=== PATIENT | female | born 1955 | race Caucasian/White ===

== ENCOUNTER → 2016-05-04 | Outpatient (CLI) | payer OTHER ==
[~2016-05-04] MED LIST: ASPI81TA57 PO; CALCTAB5 PO; CINN1CAP2 PO; DLD2 PO; ESTR2TAB PO; MULT-506 PO; NCY50 PO; NRN100 PO; ZCR40 PO
[2016-05-04 18:06] LABS: URINE APPEARANCE CLEAR (CLEAR); URINE BILIRUBIN NEG (NEG); URINE COLOR YELLOW; URINE EPITHELIAL CELL AUTO 0-5 /lpf (0-5); URINE NITRITE NEG (NEG); URINE SPECIFIC GRAVITY 1.009 (1.000-1.030); UROBILINOGEN NEG (NEG); ZZUR CULT IF INDIC CLEAN CATCH NO
[2016-05-04 18:21] LABS: MANUAL MICROSCOPIC REQUIRED? NO; REVIEW REQ? NO
== END | disposition home or self-care (01) ==
LOC: C.LABSPEC 12:51
PROVIDERS: ATTEND Obstetrics & Gynecology
DX: R39.15 Urgency of urination (principal)

== ENCOUNTER → 2016-05-04 | Outpatient (CLI) | payer OTHER | END | disposition home or self-care (01) | LOC: C.PAPS 10:04 | PROVIDERS: ATTEND Obstetrics & Gynecology | DX: Z12.4 Encounter for screening for malignant neoplasm of cervix (principal) ==

== ENCOUNTER → 2017-05-21 | Outpatient (CLI) | payer BC ==
[~2017-05-21] MED LIST changes: -DLD2 PO; +HYDR2TAB3 PO
--- NOTE | 2017-05-24 07:39 | MAMMOGRAPHY REPORT ---
BILATERAL DIGITAL SCREENING MAMMOGRAM TOMOSYNTHESIS WITH CAD: 05/21/2017 CLINICAL HISTORY: Routine screening. Patient has no complaints. TECHNIQUE: Breast tomosynthesis in addition to standard 2D mammography was performed. Current study was also evaluated with a Computer Aided Detection (CAD) system. COMPARISON: Comparison is made to exams dated: 08/01/2015 mammogram, 07/13/2014 mammogram, 07/07/2013 m ammogram, 07/01/2012 mammogram, 06/26/2010 mammogram, and 06/25/2009 mammogram - [facility] nter. BREAST COMPOSITION: There are scattered areas of fibroglandular density in both breasts. FINDINGS: No suspicious masses, calcifications, or areas of architectural distortion are noted in ei ther breast. There has been no significant interval change compared to prior exams. IMPRESSION: ACR BI-RADS CATEGORY 1: NEGATIVE There is no mammographic evidence of malignancy. A 1 year screening mammogram is recommended. The pa tient will receive written notification of the results. Approximately 10% of breast cancers are not detected with mammography. A negative mammographic report should not delay biopsy if a clinically suggestive mass is present. Concha Benitez M.D. /:05/21/2017 12:33:58 Software Computer Specialist: Marianne Luther, [facility] letter sent: Normal /2 BI-RADS Code: ACR BI-RADS Category 1: Negative
== END | disposition home or self-care (01) ==
LOC: C.MAMM 09:36
PROVIDERS: ATTEND Obstetrics & Gynecology
DX: Z12.31 Encounter for screening mammogram for malignant neoplasm of breast (principal)

== ENCOUNTER → 2017-07-28 | Outpatient (CLI) | payer BC ==
--- NOTE | 2017-07-28 13:42 | DIAGNOSTIC IMAGING REPORT ---
CHEST 2 VIEWS ROUTINE CLINICAL HISTORY: 62 years-old Female presenting with J18.9 Community acquired pneumonia Still have symptoms after treatment. TECHNIQUE: PA and lateral views of the chest were obtained. COMPARISON: 03/28/2014. FINDINGS: Atherosclerosis of the aortic arch. Cardiac silhouette normal in size. Minimal left basilar opacity and small left pleural effusion evident only on lateral view. No focal opacity. No pneumothorax. Dextrocurvature of the thoracic spine. Partially visualized lumbar fusion hardware. Upper abdomen normal. IMPRESSION: 1. Small left pleural effusion with associated minimal left basilar opacity, possibly atelectasis. Electronically signed by: Miguel Soto M.D. 07/28/2017 1:40 PM Dictated Date/Time: 07/28/2017 1:38 PM
== END | disposition home or self-care (01) ==
LOC: C.LAB1850 13:15
PROVIDERS: ATTEND Internal Medicine
DX: J18.9 Pneumonia, unspecified organism (principal)

== ENCOUNTER 2017-07-30 19:32 | Emergency (ER) | payer BC ==
[~2017-07-30] VITALS: Ht 149.9 cm; Wt 81.5 kg
[2017-07-30 19:39] VITALS: TEMP 36.7; Ht 149.9 cm; Wt 81.5 kg
--- NOTE | 2017-07-30 21:02 | EMERGENCY ROOM VISIT NOTE ---
History Report prepared by Valentina: Marley Churchill Under the Supervision of: Dr. Valente Berry M.D. 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 She states that she has shakiness and sweating. She denies having a fever. She states her episodes last about 5 minutes and then they subside. 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 She states she does not know anyone else who is sick. She denies smoking, having any weird exposure to anything, or receiving a flu shot. 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 A total of 10 systems reviewed and were otherwise negative. Past Medical & Surgical Medical Problems: (1) Hyperlipidemia Nec/Nos Surgical Problems: (1) S/P lumbar fusion Old medical records were reviewed. Nurse's notes were reviewed and I agree with. Family History Diabetes mellitus Heart disease Social History Smoking Status: Never Smoker Alcohol Use: none Marital Status: Housing Status: lives with family Current/Historical Medications Scheduled Aspirin (Aspirin Ec Lo-Dose), 81 MG PO DAILY Calcium (Caltrate), 1,200 MG PO DAILY Cinnamon (Cinnamon), 2,000 MG PO DAILY Estradiol (Estradiol), 2 MG PO DAILY Gabapentin (Gabapentin), 100 MG PO TID Multivitamin (Multivitamin), 1 TAB PO DAILY Simvastatin (Simvastatin), 40 MG PO DAILY Scheduled PRN Hydromorphone HCl (Hydromorphone HCl), 2 MG PO Q6 PRN for Pain Tapentadol HCl (Nucynta), 50 MG PO Q4H PRN for Pain Allergies Coded Allergies: Acetaminophen (Unverified Allergy, Unknown, RASH, SEVERE ITCHINESS, 05/24/14 ) Codeine (Unverified Allergy, Unknown, RASH, SEVERE ITCHINESS, 05/24/14) Morphine (Verified Allergy, Unknown, skin redness, itching, 05/24/14) Oxycodone (Verified Allergy, Unknown, URITCARIA, 05/24/14) Physical Exam Vital Signs Date Time Temp Pulse Resp B/P (MAP) Pulse Ox O2 Delivery O2 Flow Rate FiO2 07/30/17 23:33 61 20 118/73 95 Room Air 07/30/17 22:46 65 20 125/71 94 Room Air 07/30/17 21:38 65 07/30/17 19:39 36.7 73 20 127/70 95 Room Air Physical Exam General: Mildly-ill appearing middle aged female in no acute distress. Has a frequent hacking cough but is in no respiratory distress HEENT: Normal cephalic atraumatic. Pupils are equal round and reactive to light. Extraocular movements are intact. Oropharynx is pink with moist mucous membranes. No swelling of the mouth lips or tongue. Neck: Supple with a midline trachea. No meningeal signs or stiffness, no JVD or bruits. No Stridor. Chest: Clear to auscultation bilaterally. No wheezes or rhonchi. No increased work of breathing. Heart: regular rate and rhythm. Abdomen: Soft nontender, nondistended without rebound guarding or rigidity. Extremities: No cyanosis clubbing or edema. No calf tenderness or assymetry Spine/Back. Non tender to palpation. No CVA tenderness Skin: Good turgor without rashes. Neurologic exam: Cranial nerves two through 12 are intact. Motor and sensation are intact and symmetrical throughout. Medical Decision & Procedures ER Provider Diagnostic Interpretation: Radiology results as stated below per my review and radiologist interpretation: CHEST ONE VIEW PORTABLE CLINICAL HISTORY: 62 years-old Female presenting with CHEST PAIN. TECHNIQUE: Portable upright AP view of the chest was obtained. COMPARISON: 07/28/2017. FINDINGS: Cardiomediastinal silhouette normal. No focal opacity. No large effusion or pneumothorax. Post procedure changes of kyphoplasty. Superior knee from prior. Mild scoliotic curvature of the thoracic spine. Upper abdomen normal. IMPRESSION: 1. No acute cardiopulmonary disease. Electronically signed by: Miguel Soto M.D. 07/30/2017 9:32 PM Dictated Date/Time: 07/30/2017 9:31 PM Laboratory Results 07/30/17 20:50 Red Blood Count 4.18, Mean Corpuscular Volume 95.9, Mean Corpuscular Hemoglobin 34.2, Mean Corpuscular Hemoglobin Concent 35.7, Mean Platelet Volume 10.2, Neutrophils (%) (Auto) 64.1, Lymphocytes (%) (Auto) 25.2, Monocytes (%) (Auto) 7.5, Eosinophils (%) (Auto) 2.7, Basophils (%) (Auto) 0.3, Neutrophils # (Auto) 4.27, Lymphocytes # (Auto) 1.68, Monocytes # (Auto) 0.50, Eosinophils # (Auto) 0.18, Basophils # (Auto) 0.02 07/30/17 20:50 Test 07/30/17 20:50 07/30/17 21:17 07/30/17 21:47 White Blood Count 6.66 K/uL (4.8-10.8) Red Blood Count 4.18 M/uL (4.2-5.4) Hemoglobin 14.3 g/dL (12.0-16.0) Hematocrit 40.1 % (37-47) Mean Corpuscular Volume 95.9 fL (80-100) Mean Corpuscular Hemoglobin 34.2 pg (25-34) Mean Corpuscular Hemoglobin Concent 35.7 g/dl (32-36) Platelet Count 291 K/uL (130-400) Mean Platelet Volume 10.2 fL (7.4-10.4) Neutrophils (%) (Auto) 64.1 % Lymphocytes (%) (Auto) 25.2 % Monocytes (%) (Auto) 7.5 % Eosinophils (%) (Auto) 2.7 % Basophils (%) (Auto) 0.3 % Neutrophils # (Auto) 4.27 K/uL (1.4-6.5) Lymphocytes # (Auto) 1.68 K/uL (1.2-3.4) Monocytes # (Auto) 0.50 K/uL (0.11-0.59) Eosinophils # (Auto) 0.18 K/uL (0-0.5) Basophils # (Auto) 0.02 K/uL (0-0.2) RDW Standard Deviation 44.7 fL (36.4-46.3) RDW Coefficient of Variation 13.2 % (11.5-14.5) Immature Granulocyte % (Auto) 0.2 % Immature Granulocyte # (Auto) 0.01 K/uL (0.00-0.02) Anion Gap 7.0 mmol/L (3-11) Est Creatinine Clear Calc Drug Dose 45.5 ml/min Estimated GFR () 56.5 Estimated GFR (Non- 48.7 BUN/Creatinine Ratio 14.2 (10-20) Calcium Level 9.5 mg/dl (8.5-10.1) Total Bilirubin 0.3 mg/dl (0.2-1) Direct Bilirubin mg/dl (0-0.2) Aspartate Amino Transf (AST/SGOT) 28 U/L (15-37) Alanine Aminotransferase (ALT/SGPT) 34 U/L (12-78) Alkaline Phosphatase 78 U/L (45-117) Total Protein 7.9 gm/dl (6.4-8.2) Albumin 4.3 gm/dl (3.4-5.0) Lipase 178 U/L (73-393) Chemistry Specimen Hemolysis Influenza Type A Antigen Neg for Influ A (NEG) Influenza Type B Antigen Neg for Influ B (NEG) Bedside D-Dimer 284 ng/mlFEU (0-450) Medications Administered Medications (Trade) Dose Ordered Sig/Cheko Route Start Time Stop Time Status Last Admin Dose Admin Lorazepam (Ativan 1MG Home Pack) 1 homepack UD ONCE PO 07/30/17 23:15 07/30/17 23:16 DC 07/30/17 23:33 1 HOMEPACK Albuterol (Ventolin Hfa Inhaler) 2 puffs NOW ONCE INH 07/30/17 23:15 07/30/17 23:16 DC 07/30/17 23:33 2 PUFFS ECG Per My Interpretation Indication: SOB/dyspnea Rate (beats per minute): 72 Rhythm: normal sinus Findings: no acute ischemic change, no ectopy, other (low voltage, poor R wave progression) Comparison ECG Date: March 28, 2014 Change: no significant change ED Course 2048: Past medical records reviewed. The patient was evaluated in room A3, and a complete history and physical examination were performed. Medical Decision Differential diagnosis: Etiologies such as bronchitis, pneumonia, influenza, pertussis, PE, cardiac disease, electrolyte or metabolic abnormality, as well as others were entertained. This patient comes in as described above she has had a cough for several weeks now and has been on antibiotics. She tells me she has pneumonia and is just not getting better. she is on Levaquin starting 2 days ago. She has chest pain mostly with coughing. On my exam, she has a deep hacking intermittent cough. She has stable vital signs and is not hypoxemic and she is afebrile. EKG shows no acute ischemic changes or ectopy. Chest x-ray is unremarkable. She has no acute electrolyte or metabolic abnormalities. Multiple blood testing was obtained. She has no white count or fever to suggest infection. She has no acute electrolyte or metabolic abnormality. Her cardiac biomarkers are not elevated. Symptoms will be very atypical for cardiac disease. Influenza swab was negative. I did a pertussis swab but that is pending. Given that, I did put in respiratory isolation. I did a chest CT there is no evidence of PE. There is no definite infiltrate but more likely atelectasis in the bases I do think she should continue the antibiotic. I did discuss with her pharmacist Levaquin does have coverage for pertussis which would still be in the differential. She cannot tolerate codeine type products and is going to try an inhaler to help with the cough. She is having trouble sleeping at night but also can take Benadryl. She says she has had Ativan before I did give her a home pack of a few Ativan that she can take 0.5 mg just to get some sleep at night. She was warned e this can make her drowsy do not take for drinking, driving, working. She should continue the Levaquin and drink plenty of fluids and follow-up with her doctor Wednesday for recheck return to the ER over the weekend if: worsening of symptoms, shortness of breath, fever or chills, any new problems or concerns. She is happy the plan and discharged to home Medication Reconcilliation Current Medication List: was personally reviewed by me Blood Pressure Screening Patient's blood pressure: Normal blood pressure Blood pressure disposition: Did not require urgent referral Impression Primary Impression: Cough Additional Impression: Chest pain Scribe Attestation The scribe's documentation has been prepared under my direction and personally reviewed by me in its entirety. I confirm that the note above accurately reflects all work, treatment, procedures, and medical decision making performed by me. Departure Information Referrals No Doctor, Assigned (PCP) Patient Instructions My [facility] Problem Qualifiers
[2017-07-30 21:10] LABS: BASO % 0.3 %; BASO ABS # 0.02 K/uL (0-0.2); EOS % 2.7 %; EOS ABS # 0.18 K/uL (0-0.5); HEMATOCRIT 40.1 % (37-47); HEMOGLOBIN 14.3 g/dL (12.0-16.0); IG# 0.01 K/uL (0.00-0.02); LYMPH % 25.2 %; LYMPH ABS # 1.68 K/uL (1.2-3.4); MEAN CELL VOLUME 95.9 fL (80-100); MEAN CORPUSCULAR HEMOGLOBIN 34.2 pg (25-34); MEAN CORPUSCULAR HGB CONC 35.7 g/dl (32-36); MEAN PLATELET VOLUME 10.2 fL (7.4-10.4); MONO % 7.5 %; NEUT % 64.1 %; NEUT ABS # 4.27 K/uL (1.4-6.5); PLATELET COUNT 291 K/uL (130-400); RED CELL DISTRIBUTION WIDTH CV 13.2 % (11.5-14.5); RED CELL DISTRIBUTION WIDTH SD 44.7 fL (36.4-46.3); WHITE BLOOD COUNT 6.66 K/uL (4.8-10.8)
--- NOTE | 2017-07-30 21:33 | DIAGNOSTIC IMAGING REPORT ---
CHEST ONE VIEW PORTABLE CLINICAL HISTORY: 62 years-old Female presenting with CHEST PAIN. TECHNIQUE: Portable upright AP view of the chest was obtained. COMPARISON: 07/28/2017. FINDINGS: Cardiomediastinal silhouette normal. No focal opacity. No large effusion or pneumothorax. Post procedure changes of kyphoplasty. Superior knee from prior. Mild scoliotic curvature of the thoracic spine. Upper abdomen normal. IMPRESSION: 1. No acute cardiopulmonary disease. Electronically signed by: Miguel Soto M.D. 07/30/2017 9:32 PM Dictated Date/Time: 07/30/2017 9:31 PM
[2017-07-30 21:35] LABS: ALBUMIN 4.3 gm/dl (3.4-5.0); CALCIUM 9.5 mg/dl (8.5-10.1); CREATININE 1.2 mg/dl (0.60-1.20); POTASSIUM 3.2 mmol/L (3.5-5.1); TOTAL PROTEIN 7.9 gm/dl (6.4-8.2)
[2017-07-30 21:57] LABS: INFLUENZA B ANTIGEN Neg for Influ B (NEG)
[2017-07-30] MEDS ORDERED: OPTIRAY 320 IV PRN (22:30)
--- NOTE | 2017-07-30 22:39 | DIAGNOSTIC IMAGING REPORT ---
(CHEST FOR PE) ANGIO WITH CLINICAL HISTORY: 62 years-old Female presenting with chest pain, clinical concern for pulmonary embolus or pneumonia. TECHNIQUE: Multidetector CT angiography of the chest was performed after administration of intravenous contrast. 3-D volumetric and/or maximum intensity projection (MIP) images were subsequently reconstructed for review. IV contrast: 94 mL of Optiray 320. A dose lowering technique was used consistent with the principles of ALARA (as low as reasonably achievable). COMPARISON: Chest x-ray performed earlier the same day. CT DOSE (mGy.cm): The estimated cumulative dose is 499.77 mGy.cm. 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 Pulmonary vasculature: The study is adequate for assessment of the pulmonary vascular tree. No filling defect within the pulmonary arteries to suggest embolus. Main pulmonary artery is not enlarged. No flattening of the interventricular septum. No intracardiac filling defect. No reflux of contrast into the hepatic veins. Remaining chest: On soft tissue windows, normal thyroid and thoracic inlet. No axillary, supraclavicular, hilar, or mediastinal lymphadenopathy. Normal aorta. Normal heart size. No pericardial or pleural effusion. Upper abdomen normal. On lung windows, minimal groundglass and reticular opacities in a peripheral distribution that follows the dependent posterior basal segment of the right lower lobe. Minimal similar changes at the left lung base. No other focal nodule or infiltrate. Airways patent. On bone windows, normal osseous structures. IMPRESSION: 1. No evidence of pulmonary embolus. 2. Minimal bibasilar opacities suspected to be atelectasis greater on the right. No convincing evidence of acute intrathoracic pathology. Electronically signed by: Miguel Soto M.D. 07/30/2017 10:37 PM Dictated Date/Time: 07/30/2017 10:34 PM
[2017-07-30] MEDS ORDERED: ATIVAN 1MG HOMEPACK PO ONE (23:15)
[2017-07-30] MEDS ORDERED: ALBUTEROL HFA 8 GM INHALER INH ONE (23:15)
[2017-07-30 23:33] VITALS: BP 118/73; PULSE 61; O2SAT 95
== END 2017-07-30 23:52 | disposition home or self-care (01) ==
LOC: C.EDB 19:33 → C.EDA 23:52
DX: R05 Cough (principal); R07.9 Chest pain, unspecified; E78.5 Hyperlipidemia, unspecified; Z79.82 Long term (current) use of aspirin; Z79.899 Other long term (current) drug therapy; Z88.5 Allergy status to narcotic agent

== ENCOUNTER → 2017-12-01 | Outpatient (CLI) | payer BC ==
[2017-12-01 10:02] LABS: HEMATOCRIT 36.9 % (37-47); HEMOGLOBIN 12.6 g/dL (12.0-16.0); MEAN CELL VOLUME 92.3 fL (80-100); MEAN CORPUSCULAR HEMOGLOBIN 31.5 pg (25-34); MEAN CORPUSCULAR HGB CONC 34.1 g/dl (32-36); MEAN PLATELET VOLUME 10.4 fL (7.4-10.4); PLATELET COUNT 247 K/uL (130-400); RED CELL DISTRIBUTION WIDTH CV 12.2 % (11.5-14.5); RED CELL DISTRIBUTION WIDTH SD 41.3 fL (36.4-46.3); WHITE BLOOD COUNT 2.93 K/uL (4.8-10.8)
[2017-12-01 10:26] LABS: ALKALINE PHOSPHATASE 68 U/L (45-117); ALT/SGPT 34 U/L (12-78); AST/SGOT 27 U/L (15-37); BLOOD UREA NITROGEN 17 mg/dl (7-18); CALCIUM 9.1 mg/dl (8.5-10.1); CARBON DIOXIDE 31 mmol/L (21-32); CHOLESTEROL 184 mg/dl (0-200); CREATININE 0.85 mg/dl (0.60-1.20); GLUCOSE 95 mg/dl (70-99); LDL CHOLESTEROL CALCULATED 98 mg/dl; POTASSIUM 3.6 mmol/L (3.5-5.1); SODIUM 138 mmol/L (136-145); TOTAL PROTEIN 7.2 gm/dl (6.4-8.2)
== END | disposition home or self-care (01) ==
LOC: C.LAB1850 07:53
PROVIDERS: ATTEND Internal Medicine
DX: Z00.00 Encounter for general adult medical examination without abnormal findings (principal); E78.5 Hyperlipidemia, unspecified; I10 Essential (primary) hypertension

== ENCOUNTER 2018-10-19 13:47 | Observation (INO) ==
[2018-10-19] MEDS ORDERED: OPTIRAY 320 125ml IV PRN (14:18)
--- NOTE | 2018-10-19 14:18 | CT Scan Report ---
CT head/brain wo con CLINICAL HISTORY: 63 years-old Female with Stroke evaluation . Acute weakness with strokelike sympto ms TECHNIQUE: Multiple axial CT images of the head were obtained without contrast. A dose lowering tech nique was utilized adhering to the principles of ALARA. CT DOSE: 537.48 mGy.cm COMPARISON: None. FINDINGS: No acute intracranial hemorrhage, midline shift, intracranial mass, hydrocephalus, territorial ischem ia or abnormal extra-axial collection. Mild degree of ill-defined white matter hypodensities are sugg estive of probable chronic microvascular ischemic disease. The calvarium is intact. Mild mucosal thickening of the ethmoid air cells. Soft tissues and orbits a re unremarkable. IMPRESSION: No acute intracranial abnormality. The above report was generated using voice recognition software. It may contain grammatical, syntax o r spelling errors. Electronically signed by: Obie Hylton M.D. 10/19/2018 2:17 PM
[2018-10-19 14:19] LABS: Basophils # (auto) 0.02 K/uL (0-0.2); Basophils % (auto) 0.5 %; Eosinophils # (auto) 0.16 K/uL (0-0.5); Eosinophils % (auto) 4.1 %; Hematocrit (blood only) 38.4 % (37-47); Hemoglobin 13.4 g/dL (12.0-16.0); Lymphocytes # (auto) 1.33 K/uL (1.2-3.4); Lymphocytes % (auto) 33.8 %; Mean Corpuscular Hgb Conc 34.9 g/dL (32-36); Mean Corpuscular Volume 93.2 fL (80-100); Mean Platelet Volume 10.5 fL (7.4-10.4); Monocytes # (auto) 0.31 K/uL (0.11-0.59); Monocytes % (auto) 7.9 %; Neutrophils # (auto) 2.12 K/uL (1.4-6.5); Neutrophils % (auto) 53.7 %; Platelet Count 223 K/uL (130-400); RDW Coefficient of Variation 12.3 % (11.5-14.5); Red Blood Count 4.12 M/uL (4.2-5.4); White Blood Count 3.94 K/uL (4.8-10.8)
[2018-10-19 14:24] LABS: iSTAT Creatinine 1.1 mg/dl (0.6-1.3); iSTAT Hemoglobin 13.3 g/dl (12.0-16.0); iSTAT Ionized Calcium 1.17 mmol/l (1.12-1.32); iSTAT Potassium 3.4 mEq/L (3.3-5.0)
--- NOTE | 2018-10-19 14:31 | CT Scan Report ---
CT angio neck with con HISTORY: Mental status change stroke symptoms TECHNIQUE: Multiaxial CT angiography of the neck was performed IV contrast: 100 cc All measurements were calculated based on NASCET criteria. Maximum intensity projection images were also obtained. A dose lowering technique was utilized adhering to the principles of ALARA. COMPARISON STUDY: None. FINDINGS: The aortic arch and proximal great vessels are widely patent. There is no significant sten osis, occlusion, or dissection identified within the bilateral common carotid, internal carotid, or v ertebral arteries. IMPRESSION: No significant stenosis, occlusion, or dissection identified within the carotid or vertebral arteries . The above report was generated using voice recognition software. It may contain grammatical, syntax or spelling errors. Electronically signed by: Louis Howell M.D. 10/19/2018 2:30 PM
--- NOTE | 2018-10-19 14:34 | CT Scan Report ---
HEAD CTA HISTORY: Weakness. stroke symptoms TECHNIQUE: Multiaxial CT images of the head were performed both before and after the intravenous admi nistration of contrast to evaluate the major cerebral vessels. Maximum intensity projection images we re also obtained. A dose lowering technique was utilized adhering to the principles of ALARA. COMPARISON: Head CT 10/19/2018. FINDINGS: There is no mass, hematoma, midline shift, or acute infarct. Visualized intracranial security intern al carotid arteries, distal vertebral arteries, and basilar artery are widely patent. There is no sig nificant stenosis, occlusion, or aneurysm seen within the bilateral ACAs, MCAs, or sample mounter. IMPRESSION: No significant stenosis, occlusion, or aneurysm within the [place] band of [place]. Electronically signed by: Alex Rico M.D. 10/19/2018 2:33 PM
[2018-10-19 14:35] LABS: Partial Thromboplastin Time 26.2 Seconds (21.0-31.0); Prothrombin Time 9.9 Seconds (9.0-12.0)
[2018-10-19 14:48] LABS: Alanine Aminotransferase 41 U/L (12-78); Albumin Globulin Ratio 1.2 (0.9-2); Albumin Level 4.1 gm/dl (3.4-5.0); Alkaline Phosphatase 76 U/L (45-117); Aspartate Aminotransferase 37 U/L (15-37); BUN Creatinine Ratio 21.6 (10-20); Bilirubin,Total 0.3 mg/dl (0.2-1); Blood Urea Nitrogen 23 mg/dl (7-18); Calcium 9.3 mg/dl (8.5-10.1); Carbon Dioxide 29 mmol/L (21-32); Chloride 102 mmol/L (98-107); Creatinine Clr Calc Pharmacy 53.3 ml/min; Est GFR (African American) 65.9; Est GFR (Non-African American) 56.9; Globulin 3.6 gm/dl (2.5-4.0); Glucose 147 mg/dl (70-99); Magnesium 2.4 mg/dl (1.8-2.4); Potassium 3.5 mmol/L (3.5-5.1); Sodium 140 mmol/L (136-145); Total Protein 7.7 gm/dl (6.4-8.2); Troponin I < 0.015 ng/ml (0-0.045)
--- NOTE | 2018-10-19 15:21 | History & Physical Report ---
Date of Service October 19, 2018 Assessment & Plan (1) Precordial chest pain: - Admit to tele for observation for r/o - Trend cardiac biomarkers, initial set was negative, next set to be drawn at 9 PM - EKG reviewed as above - Check 2 D echo -Cardiology consulted- Dr. Whittaker - If negative enzymes can consider a stress test tomorrow morning. - PT/OT consulted (2) Difficulty with speech: (3) Stroke-like symptoms: (4) Spinal stenosis at L4-L5 level: (5) Peripheral edema: (6) Lumbar stenosis with neurogenic claudication: (7) DVT prophylaxis: History of Present Illness Primary Care Provider: Miguel Rust MD This is a 63-year-old female with past medical history of history of chest pain, peripheral edema, lumbar stenosis with neurogenic claudication, chronic lumbar pain, who presented with precordial chest pain. Allergies Allergy/AdvReac Type Severity Reaction Status Date / Time acetaminophen Allergy Unknown RASH, Unverified 10/19/18 14:50 SEVERE ITCHINESS codeine Allergy Unknown RASH, Unverified 10/19/18 14:50 SEVERE ITCHINESS morphine Allergy Unknown skin Verified 10/19/18 14:50 redness, itching oxycodone Allergy Unknown URITCARIA Verified 10/19/18 14:50 Home Medications Home Medications Medication Instructions Recorded Confirmed Type Multi-Day Plus Minerals 1 tab PO QPM 12/23/17 10/19/18 History aspirin [Aspir-81] 81 mg PO QPM 12/23/17 10/19/18 History calcium carbonate [Calcium 600] 600 mg PO QPM 12/23/17 10/19/18 History losartan 50 mg PO QAM 12/23/17 10/19/18 History magnesium sulfate 100 mg PO QAM 12/23/17 10/19/18 History simvastatin 40 mg PO QAM 12/23/17 10/19/18 History vitamin Y00-saprj acid 1,000 mcg PO QPM 12/23/17 10/19/18 History hydrochlorothiazide 25 mg tablet 25 mg PO QAM #90 tab 10/07/18 10/19/18 Rx Past Med/Surg History Medical History Fusion of spine LUMBAR History of hysterectomy TOTAL HYSTERECTOMY BSO Hyperlipidemia Hypertension Osteoarthritis Surgical History History of bladder surgery History of carpal tunnel release R/L History of dilatation and curettage X 4 Family History Father Diabetes mellitus, type 2 Mother Diabetes mellitus, type 2 Other History of bilateral tubal ligation Social History Preferred Language: Montserratian Communication Ability: Effective Beliefs That Will Affect Care: None Current Living Situation: Spouse Feels Safe at Home: Yes Smoking Status: Never smoker Second Hand Exposure: No Hx Alcohol Use: No Hx Substance Use: No Review of Systems Review of Systems: Constitutional: No fever, sweats or chills Eyes: No diplopia, no worsening or blurred vision ENT: normal hearing, no trouble swallowing Respiratory: No cough, sputum, dyspnea at rest or on exertion Cardiovascular: No chest pain, tightness or palpitations Abdomen: No pain, nausea, vomiting, diarrhea or constipation Musculoskeletal: No joint pain, calf pain, swelling Neurologic: No weakness, numbness/tingling, or balance problems Psychiatric: No anxiety or depression Skin: No rash or itch Physical Exam Physical Exam: General: awake, alert, no apparent distress Head: Normocephalic, atraumatic ENT: PERRL, EOMI, no pharyngeal exudate, mucous membranes moist Chest: Clear to auscultation, on room air, no adventitious breath sounds Cardiac: Regular rate and rhythm, no murmur, no JVD, normal peripheral pulses, good capillary refill Abdominal: NABS x 4 quadrants, soft, nontender to palpation, no rebound, guarding or tenderness Extremities: Normal inspection, no peripheral edema or erythema, calfs nontender to palpation Psych: Normal mood and affect Neuro: AAO x 3, strength intact bilaterally and related 5/5, no motor deficits, speech is clear, no peripheral sensory deficits Skin: no rash or erythema Results & Data Vital Signs (Past 12 Hours) Vital Signs Pulse Pulse Resp BP BP Pulse Ox 10/19/18 14:25 75 16 139/83 97 10/19/18 13:53 69 18 150/89 H 98 PG Care Time/CCT Total # of Minutes Spent Total Time Spent with Patient: Total time spent is greater than 50% in coordination of care (as documented) at patient's floor/unit and/or counseling patient:
--- NOTE | 2018-10-19 15:42 | History & Physical Report ---
Date of Service October 19, 2018 Assessment & Plan (1) Stroke-like symptoms: Concerning in the setting of multiple waxing/waning sx over time CT head, CTA head/neck neg for acute CBC, PRP WNL MRI pending Lipid, A1c pending Takes aspirin 81mg at baseline, will likely need plavix in place of this given events PT/OT pending given persisting mild weakness (2) Precordial chest pain: Trop neg x1, serials pending EKG WNL Slight improvement with taking nitro (belongs to her mother, pt has no hx of use prior) (3) HTN (hypertension): continue home meds (4) Hyperlipidemia: continue home meds (5) DVT prophylaxis: SCDs History of Present Illness Primary Care Provider: Miguel Rust MD 63 y/o F c/o chest pain and stroke like sx. 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 It did not radiate. She was sweaty with this, but no other sx. She sat down but it did not improve. Her mother has hx of chest pain and has nitro in the home, so she took one. After about 10 minutes, her pain was improved but still present, so she decided she should come to the ED. On the way to the ED, pt was trying to speak, but she could not express what she was trying to say. She was not confused and was aware that this was happening. By the time she came to the ED, this was resolved but pt was noted to still be having some slower speech than usual. When she tried to move from the car to the wheelchair, she noted that her L side was weaker. This had not been the case with the initial sx. ED evaluation noted a L sided pronator drift and decreased L sided strength initially. Pt was evaluated by telemed, but by this time her sx were noted to have been resolved. Pt states that she has never had any of these sx in the past. She states that she feels tired at present, but otherwise herself. 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 Pt takes 81mg aspirin QHS for prevention and has not missed any doses. Pt denies fever, SOB, chest pain, abd pain, n/v/c/d, LE pain or swelling. Allergies Allergy/AdvReac Type Severity Reaction Status Date / Time acetaminophen Allergy Unknown RASH, Unverified 10/19/18 14:50 SEVERE ITCHINESS codeine Allergy Unknown RASH, Unverified 10/19/18 14:50 SEVERE ITCHINESS morphine Allergy Unknown skin Verified 10/19/18 14:50 redness, itching oxycodone Allergy Unknown URITCARIA Verified 10/19/18 14:50 Home Medications Home Medications Medication Instructions Recorded Confirmed Type Multi-Day Plus Minerals 1 tab PO QPM 12/23/17 10/19/18 History aspirin [Aspir-81] 81 mg PO QPM 12/23/17 10/19/18 History calcium carbonate [Calcium 600] 600 mg PO QPM 12/23/17 10/19/18 History losartan 50 mg PO QAM 12/23/17 10/19/18 History magnesium sulfate 100 mg PO QAM 12/23/17 10/19/18 History simvastatin 40 mg PO QAM 12/23/17 10/19/18 History vitamin S06-kgbre acid 1,000 mcg PO QPM 12/23/17 10/19/18 History hydrochlorothiazide 25 mg tablet 25 mg PO QAM #90 tab 10/07/18 10/19/18 Rx Past Med/Surg History Medical History Fusion of spine LUMBAR History of hysterectomy TOTAL HYSTERECTOMY BSO Hyperlipidemia Hypertension Osteoarthritis Surgical History History of bladder surgery History of carpal tunnel release R/L History of dilatation and curettage X 4 Family History Father Diabetes mellitus, type 2 Myocardial infarction Mother Diabetes mellitus, type 2 Stroke Other History of bilateral tubal ligation Social History Preferred Language: Lithuanian Communication Ability: Effective Beliefs That Will Affect Care: None Current Living Situation: Spouse Feels Safe at Home: Yes Smoking Status: Never smoker Second Hand Exposure: No Hx Alcohol Use: No Hx Substance Use: No Review of Systems Review of Systems: Pertinent positives and negatives reviewed in HPI--all others negative Physical Exam Constitutional: WD/WN, vitals as above Eyes: normal visual pereyra by confrontation and + anicteric sclerae Neck: normal visual inspection and trachea midline Respiratory: normal respiratory effort, lungs clear to auscultation Cardiovascular: Rate/Rhythm: regular rate and regular rhythm Gastrointestinal (Abdomen): Inspection/Auscultation: abdomen not distended Percussion/Palpation: abdomen soft; abdomen nontender Musculoskeletal: Head/Neck/Chest: normocephalic and head atraumatic negative for edema, peripheral pulses intact Skin: no rashes, warm and dry Neurologic: CN's II-XI intact bilaterally and awake; not confused Speech / Cognition: normal speech = retail special event associate strength 5/5 b/l Slightly decreased strength against L hip flexion but still 5/5 5/5 b/l in other planes Psychiatric: A+Ox3, euthymic affect Apperance: appropriately groomed Eye Contact: good eye contact Speech: normal rate/rhythm/volume of speech Results & Data Vital Signs (Past 12 Hours) Vital Signs Pulse Pulse Resp BP BP Pulse Ox 10/19/18 14:25 75 16 139/83 97 10/19/18 13:53 69 18 150/[address] head: neg for acute CTA head/neck: neg for acute ECG Rhythm: normal sinus Code Status & VTE Plan Code Status Full code, although pt states no prolonged mechanical life support, feeding tubes, etc PG Care Time/CCT Total # of Minutes Spent Total Time Spent with Patient: Total time spent is greater than 50% in coordination of care (as documented) at patient's floor/unit and/or counseling patient:
--- NOTE | 2018-10-19 15:50 | Emergency Department Note ---
Entered by Satnam Hurtado acting as a scribe for Xavier Madrid MD History of Present Illness General Chief complaint: Chest Pain Stated complaint: SOB Time Seen by Provider: 10/19/18 14:00 Source: patient and other (nurse) History of Present Illness Onset (ago): minute(s) (chest pain 45 minutes ago, speech difficulties 15 minutes ago) Location: chest Pain Consistency: + other (chest pain persistent but improved) Quality: + other (chest pain, speech difficulties) Associated symptoms: no headaches Treatments prior to arrival: other (nitro) The patient is a 63 year old female who present to the Emergency Room with chest pain beginning about 45 minutes ago and speech difficulties beginning in the ambulance, approximately 15 minutes prior to arrival. The nurse reports that after the patient developed chest pain she took one of her mothers nitrog lycerin tablets, and her pain is currently improved but still present. In the ambulance about 15 minutes ago, the nurse states that the patient developed speech difficulties. Upon her arrival the nurse also reports that there was questionable left arm and leg weakness, but in the short time she has been in the ER her weakness and speech difficulties both seem improved. The patient denies headaches. The patient reports that she had chest pain today while mopping the floor. She states that it was 8/10 at the time and was associated with diaphoresis. She notes that the chest pain was central and did not radiate, and there was no shortness of breath. She reports that she then took one of her mothers nitroglycerin tablets that improved her pain. She denies history of similar chest pain, heart problems, or stroke. Home Medications Home Medications Medication Instructions Recorded Confirmed Type Multi-Day Plus Minerals 1 tab PO QPM 12/23/17 10/19/18 History aspirin [Aspir-81] 81 mg PO QPM 12/23/17 10/19/18 History calcium carbonate [Calcium 600] 600 mg PO QPM 12/23/17 10/19/18 History losartan 50 mg PO QAM 12/23/17 10/19/18 History magnesium sulfate 100 mg PO QAM 12/23/17 10/19/18 History simvastatin 40 mg PO QAM 12/23/17 10/19/18 History vitamin I75-ofuej acid 1,000 mcg PO QPM 12/23/17 10/19/18 History hydrochlorothiazide 25 mg tablet 25 mg PO QAM #90 tab 10/07/18 10/19/18 Rx Allergies Allergy/AdvReac Type Severity Reaction Status Date / Time acetaminophen Allergy Unknown RASH, Unverified 10/19/18 14:50 SEVERE ITCHINESS codeine Allergy Unknown RASH, Unverified 10/19/18 14:50 SEVERE ITCHINESS morphine Allergy Unknown skin Verified 10/19/18 14:50 redness, itching oxycodone Allergy Unknown URITCARIA Verified 10/19/18 14:50 Past Med/Surg History Medical History Fusion of spine LUMBAR History of hysterectomy TOTAL HYSTERECTOMY BSO Hyperlipidemia Hypertension Osteoarthritis Surgical History History of bladder surgery History of carpal tunnel release R/L History of dilatation and curettage X 4 Family History Father Diabetes mellitus, type 2 Myocardial infarction Mother Diabetes mellitus, type 2 Stroke Other History of bilateral tubal ligation Social History Preferred Language: Portuguese Communication Ability: Effective Image Scientist Required: No Beliefs That Will Affect Care: None Current Living Situation: Spouse Other Information That Helps Us Care for You: No Feels Safe at Home: Yes Safety Concerns: Feels Safe At This Time Smoking Status: Never smoker Do You Dip or Chew Tobacco: No Second Hand Exposure: No Hx Alcohol Use: No Hx Substance Use: No Review of Systems See HPI for pertinent positives & negatives. and A total of 10 systems reviewed and were otherwise negative Physical Exam Vital Signs Vital Signs - 24 hr 10/19/18 13:53 10/19/18 14:24 10/19/18 14:25 Sepsis Recent Fever Within 48 Hours No Sepsis Action Taken by Nursing No Action Required Pulse Rate 69 77 Pulse Rate [Apical] 75 Pulse Rate from SpO2 Sensor 78 Respiratory Rate 18 27 H 16 Respiratory Depth Normal Respiratory Pattern Regular Blood Pressure 150/89 H 139/83 Blood Pressure [Right Arm] 139/83 Blood Pressure Mean 109 101 Blood Pressure Mean [Right Arm] 101 Pulse Oximetry 98 97 97 Oxygen Delivery Method Room Air 10/19/18 14:27 10/19/18 14:30 10/19/18 14:45 Sepsis Recent Fever Within 48 Hours Sepsis Action Taken by Nursing Pulse Rate 75 68 64 Pulse Rate [Apical] Pulse Rate from SpO2 Sensor 77 69 64 Respiratory Rate 12 21 18 Respiratory Depth Respiratory Pattern Blood Pressure 126/80 132/87 Blood Pressure [Right Arm] Blood Pressure Mean 95 102 Blood Pressure Mean [Right Arm] Pulse Oximetry 97 98 97 Oxygen Delivery Method 10/19/18 15:00 10/19/18 15:15 10/19/18 15:30 Sepsis Recent Fever Within 48 Hours Sepsis Action Taken by Nursing Pulse Rate 61 65 64 Pulse Rate [Apical] Pulse Rate from SpO2 Sensor 61 65 64 Respiratory Rate 14 19 20 Respiratory Depth Respiratory Pattern Blood Pressure 140/82 139/87 136/84 Blood Pressure [Right Arm] Blood Pressure Mean 101 104 101 Blood Pressure Mean [Right Arm] Pulse Oximetry 99 98 97 Oxygen Delivery Method GENERAL: Patient is in no acute distress. HEENT: No acute trauma, normocephalic atraumatic, mucous membranes moist, no nasal congestion, no scleral icterus. NECK: No stridor, no adenopathy, no meningismus, trachea is midline. LUNGS: Clear to auscultation bilaterally, no wheeze, no rhonchi, breath sounds equal. HEART: Without murmurs gallops or rubs, regular rate and rhythm. ABDOMEN: Soft, nontender, bowel sounds positive, no hernias, no peritonitis. EXTREMITIES: No cyanosis or edema, full range of motion of all the joints without pain or difficulty, no signs for acute trauma. NEUROLOGIC: Difficulty finding words but no speech slur. Awake, alert and oriented x3. No upper extremity cerebellar deficits. Shakiness and subtle weakness to the left lower extremity but no actual drift. No facial droop. SKIN: No rash, no jaundice, no diaphoresis. Course 1400: Stroke alert was called. 1401: The patient was evaluated in room B12B. A history and physical examination were performed. The patient was then immediately taken to CT. 1418: I consulted Dr. Farida Leavitt [facility]. She will evaluate the patient via teleprompter. 1424: The patient has returned from CT. All deficits have now resolved, including speech. 1445: The stroke neurologist has finished evaluating the patient. 1452: I updated the patient on findings and current plan. She is feeling well. 1458: I consulted Dr. Arias [facility] Hospitalist. The patient will be reevaluated for hospitalization. Administered Medications Aspirin (Ecotrin Ectab) 81 mg PO QPM TERRY Stop: 11/18/18 20:59 Last Admin: 10/19/18 20:27 Dose: 81 mg Documented by: [id number] Calcium Carbonate (Os-Jaspreet 500) 1,250 mg PO QPM TERRY Stop: 11/18/18 20:59 Last Admin: 10/19/18 20:26 Dose: 1,250 mg Documented by: [id number] Cyanocobalamin (Vitamin B-12) 1,000 mcg PO QPM TERRY Stop: 11/18/18 20:59 Last Admin: 10/19/18 20:26 Dose: 1,000 mcg Documented by: [id number] Sodium Chloride (Nss 1000ml) 1,000 mls @ 50 mls/hr IV .Q20H TERRY Stop: 11/18/18 14:14 Last Admin: 10/19/18 18:45 Dose: 50 mls/hr Documented by: [id number] Ioversol (Optiray 320 125ml) 118 ml IV ONCE PRN PRN Reason: Interaction Checking Stop: 10/23/18 14:17 Last Admin: 10/19/18 14:18 Dose: 118 ml Documented by: [id number] Multivitamins/Minerals (Multivitamin W/ Minerals Tab) 1 tab PO QPM TERRY Stop: 11/18/18 20:59 Last Admin: 10/19/18 20:27 Dose: 1 tab Documented by: [id number] Discontinued Medications Ketorolac Tromethamine (Toradol) 15 mg IV NOW ONE Stop: 10/19/18 19:41 Last Admin: 10/19/18 19:51 Dose: 15 mg Documented by: [id number] Lorazepam (Ativan) 0.5 mg PO NOW STA Stop: 10/19/18 16:49 Last Admin: 10/19/18 18:05 Dose: Not Given Documented by: [id number] Lorazepam (Ativan) 1 mg PO NOW STA Stop: 10/19/18 17:18 Last Admin: 10/19/18 17:22 Dose: 1 mg Documented by: [id number] Nitroglycerin (Nitro-Bid 2%) 0.5 inch EXT ONE ONE Stop: 10/19/18 19:41 Last Admin: 10/19/18 19:51 Dose: 0.5 inch Documented by: [id number] Medical Decision Making Differential Diagnosis Differential diagnosis: musculoskeletal pain, MA, angina, aortic dissection, PE, intracranial bleeding, stroke, electrolyte imbalance, anemia, medication reaction, TIA Medical Records Attestation: I reviewed the patient's medical records. Home Medications Current Medication List: was personally reviewed by me Laboratory Data Attestation: I reviewed the patient's lab results. Result diagrams: 10/19/18 14:08 10/19/18 14:08 Lab Results 10/19/18 10/19/18 10/19/18 Range/Units 14:03 14:08 14:08 WBC 3.94 L (4.8-10.8) K/uL RBC 4.12 L (4.2-5.4) M/uL Hgb 13.4 (12.0-16.0) g/dL POC Hgb (12.0-16.0) g/dl Hct 38.4 (37-47) % POC Hct (37-47) % MCV 93.2 (80-100) fL MCH 32.5 (25-34) pg MCHC 34.9 (32-36) g/dL RDW Std Deviation 42.0 (36.4-46.3) fL RDW Coeff of [place] 12.3 (11.5-14.5) % Plt Count 223 (130-400) K/uL MPV 10.5 H (7.4-10.4) fL Immature Gran % (Auto) 0.0 % Neut % (Auto) 53.7 % Lymph % (Auto) 33.8 % Hall % (Auto) 7.9 % Eos % (Auto) 4.1 % Baso % (Auto) 0.5 % Immature Gran # (Auto) 0.00 (0.00-0.02) K/uL Neut # (Auto) 2.12 (1.4-6.5) K/uL Lymph # (Auto) 1.33 (1.2-3.4) K/uL Hall # (Auto) 0.31 (0.11-0.59) K/uL Eos # (Auto) 0.16 (0-0.5) K/uL Baso # (Auto) 0.02 (0-0.2) K/uL PT 9.9 (9.0-12.0) Seconds INR 1.0 (0.9-1.1) APTT 26.2 (21.0-31.0) Seconds PTT Ratio 1.0 POC Sodium (135-144) mEq/L Sodium (136-145) mmol/L POC Potassium (3.3-5.0) mEq/L Potassium (3.5-5.1) mmol/L POC Chloride (101-112) mEq/L Chloride (98-107) mmol/L Carbon Dioxide (21-32) mmol/L POC Total CO2 (24-31) mEq/l Anion Gap (3-11) POC Anion Gap (16-25) mmol/L POC BUN (7-18) mg/dl BUN (7-18) mg/dl Creatinine (0.6-1.2) mg/dl POC Creatinine (0.6-1.3) mg/dl Est Cr Clr Drug Dosing ml/min Est GFR ( Amer) Est GFR (Non-Af Amer) BUN/Creatinine Ratio (10-20) Glucose (70-99) mg/dl POC Glucose 162 H (70-99) POC Glucose (other) (70-99) mg/dl Calcium (8.5-10.1) mg/dl POC Ioniz Calcium Mara (1.12-1.32) mmol/l Magnesium (1.8-2.4) mg/dl Total Bilirubin (0.2-1) mg/dl AST (15-37) U/L ALT (12-78) U/L Alkaline Phosphatase (45-117) U/L Troponin I (0-0.045) ng/ml Total Protein (6.4-8.2) gm/dl Albumin (3.4-5.0) gm/dl Globulin (2.5-4.0) gm/dl Albumin/Globulin Ratio (0.9-2) 10/19/18 10/19/18 Range/Units 14:08 14:09 WBC (4.8-10.8) K/uL RBC (4.2-5.4) M/uL Hgb (12.0-16.0) g/dL POC Hgb 13.3 (12.0-16.0) g/dl Hct (37-47) % POC Hct 39 (37-47) % MCV (80-100) fL MCH (25-34) pg MCHC (32-36) g/dL RDW Std Deviation (36.4-46.3) fL RDW Coeff of [place] (11.5-14.5) % Plt Count (130-400) K/uL MPV (7.4-10.4) fL Immature Gran % (Auto) % Neut % (Auto) % Lymph % (Auto) % Hall % (Auto) % Eos % (Auto) % Baso % (Auto) % Immature Gran # (Auto) (0.00-0.02) K/uL Neut # (Auto) (1.4-6.5) K/uL Lymph # (Auto) (1.2-3.4) K/uL Hall # (Auto) (0.11-0.59) K/uL Eos # (Auto) (0-0.5) K/uL Baso # (Auto) (0-0.2) K/uL PT (9.0-12.0) Seconds INR (0.9-1.1) APTT (21.0-31.0) Seconds PTT Ratio POC Sodium 140 (135-144) mEq/L Sodium 140 (136-145) mmol/L POC Potassium 3.4 (3.3-5.0) mEq/L Potassium 3.5 (3.5-5.1) mmol/L POC Chloride 98 L (101-112) mEq/L Chloride 102 (98-107) mmol/L Carbon Dioxide 29 (21-32) mmol/L POC Total CO2 28 (24-31) mEq/l Anion Gap 9.0 (3-11) POC Anion Gap 18.0 (16-25) mmol/L POC BUN 24 H (7-18) mg/dl BUN 23 H (7-18) mg/dl Creatinine 1.05 (0.6-1.2) mg/dl POC Creatinine 1.1 (0.6-1.3) mg/dl Est Cr Clr Drug Dosing 53.3 ml/min Est GFR ( Amer) 65.9 Est GFR (Non-Af Amer) 56.9 BUN/Creatinine Ratio 21.6 H (10-20) Glucose 147 H (70-99) mg/dl POC Glucose (70-99) POC Glucose (other) 155 H (70-99) mg/dl Calcium 9.3 (8.5-10.1) mg/dl POC Ioniz Calcium Mara 1.17 (1.12-1.32) mmol/l Magnesium 2.4 (1.8-2.4) mg/dl Total Bilirubin 0.3 (0.2-1) mg/dl AST 37 (15-37) U/L ALT 41 (12-78) U/L Alkaline Phosphatase 76 (45-117) U/L Troponin I < 0.015 (0-0.045) ng/ml Total Protein 7.7 (6.4-8.2) gm/dl Albumin 4.1 (3.4-5.0) gm/dl Globulin 3.6 (2.5-4.0) gm/dl Albumin/Globulin Ratio 1.2 (0.9-2) Imaging Data Radiologist's Impression: Radiology results as stated below per my review and the radiologist's interpretation: CT head/brain wo con CLINICAL HISTORY: 63 years-old Female with Stroke evaluation . Acute weakness with strokelike symptoms TECHNIQUE: Multiple axial CT images of the head were obtained without contrast. A dose lowering technique was utilized adhering to the principles of ALARA. CT DOSE: 537.48 mGy.cm COMPARISON: None. FINDINGS: No acute intracranial hemorrhage, midline shift, intracranial mass, hydrocephalu s, territorial ischemia or abnormal extra-axial collection. Mild degree of ill- defined white matter hypodensities are suggestive of probable chronic microvascular ischemic disease. The calvarium is intact. Mild mucosal thickening of the ethmoid air cells. Soft tissues and orbits are unremarkable. IMPRESSION: No acute intracranial abnormality. The above report was generated using voice recognition software. It may contain grammatical, syntax or spelling errors. Electronically signed by: Obie Hylton M.D. 10/19/2018 2:17 PM HEAD CTA HISTORY: Weakness. stroke symptoms TECHNIQUE: Multiaxial CT images of the head were performed both before and after the intravenous administration of contrast to evaluate the major cerebral vessels. Maximum intensity projection images were also obtained. A dose lowering technique was utilized adhering to the principles of ALARA. COMPARISON: Head CT 10/19/2018. FINDINGS: There is no mass, hematoma, midline shift, or acute infarct. Visualized intracranial internal carotid arteries, distal vertebral arteries, and basilar artery are widely patent. There is no significant stenosis, occlusion, or aneurysm seen within the bilateral ACAs, MCAs, or cool roofing installer. IMPRESSION: No significant stenosis, occlusion, or aneurysm within the [place]. Electronically signed by: Alex Rico M.D. 10/19/2018 2:[address] angio neck with con HISTORY: Mental status change stroke symptoms TECHNIQUE: Multiaxial CT angiography of the neck was performed IV contrast: 100 cc All measurements were calculated based on NASCET criteria. Maximum intensity projection images were also obtained. A dose lowering technique was utilized adhering to the principles of ALARA. COMPARISON STUDY: None. FINDINGS: The aortic arch and proximal great vessels are widely patent. There is no significant stenosis, occlusion, or dissection identified within the bilateral common carotid, internal carotid, or vertebral arteries. IMPRESSION: No significant stenosis, occlusion, or dissection identified within the carotid or vertebral arteries. The above report was generated using voice recognition software. It may contain grammatical, syntax or spelling errors. Electronically signed by: Louis Howell M.D. 10/19/2018 2:30 PM ECG Data Attestation: I personally reviewed and interpreted this ECG as follows: Indication: chest pain Rate (beats per minute): 69 Rhythm: normal sinus Findings: no PVC and no ST elevation Blood Pressure Blood Pressure Findings: Elevated blood pressure Blood Pressure Disposition: further management by hospitalist [facility] Narrative There is no leukocytosis, no concerning anemia. Platelet count was normal. No coagulopathy. No significant electrolyte abnormality or kidney failure. No elevation to the liver enzymes. EKG showed a sinus rhythm, no acute ischemia. Cardiac enzyme testing x1 was not consistent with acute cardiac injury. Chest film did not show mediastinal widening or pneumonia. There was no CHF. Brain CT showed no acute bleed or mass-effect. CT angiogram of the head and neck did not show stenosis or aneurysm. The patient presents with chest pain and then difficulty with speech associated with some left sided weakness. The symptoms began to improve while here in the ED and on my second assessment, her speech was normal and her left sided weakness/drifting had resolved. She had a normal neurologic exam on the second evaluation. A stroke alert was called. Patient was aggressively managed. The patient was seen by [place] stroke neurology. No TPA is indicated given the rapid improvement in her symptoms. The patient is aware of all her findings, she no longer has chest pain, or any neurologic deficits. She feels at baseline. She is going to be hospitalized for further work-up. I spoke to the caser shoe parts. The on-call hospitalist was consulted. In short, cardiac ischemia/angina is a concern, TIA or small stroke is also a concern. Further work-up is warranted. Impression & Plan Stroke-like symptoms, Difficulty with speech, Precordial chest pain Discharge Plan Visit Data *Final* Discharge Date/Time: 10/19/18 16:11 Chief Complaint: Chest Pain Stated Complaint: SOB ED Provider: Xavier Madrid Discharge Problem: Stroke-like symptoms, Difficulty with speech, Precordial chest pain Patient Disposition: Admitted As Inpatient Discharge Instructions Interventions: ED Discharge Assessment Last Done: 10/19/18 16:11 Queries: Stroke Queries Reason for No Anticoagulant at DC: Not indicated (symptoms have resolved) The irmaibe's documentation has been prepared under my direction and personally reviewed by me in its entirety. I confirm that the note above accurately reflects all work, treatment, procedures, and medical decision making performed by me.
[2018-10-19] MEDS ORDERED: MAGNESIUM HYDROXIDE SUSP 30 ML UDC PO PRN (16:31)
[2018-10-19] MEDS ORDERED: ONDANSETRON INJ 2 MG/ML 2 ML VIAL IV PRN (16:31)
[2018-10-19] MEDS ORDERED: PHARMACIST DISCHARGE MED REC CONSULT PRN (16:31)
[2018-10-19] MEDS ORDERED: LORazepam 0.5 MG TAB PO STA (16:48)
[2018-10-19] MEDS ORDERED: LORazepam 1 MG TAB PO STA (17:17)
--- NOTE | 2018-10-19 18:36 | Magnetic Resonance Report ---
MRI OF THE BRAIN WITHOUT CONTRAST CLINICAL HISTORY: Strokelike symptoms. COMPARISON STUDY: CT scan dated 10/19/2018 FINDINGS: Sagittal T1, axial diffusion, proton density and T2 weighted axial, coronal FLAIR, and axial T1-weigh jaci images were acquired. No intra or extra-axial mass lesions are visualized Axial diffusion-weighted images reveal no evidence of acute or subacute infarction. There is no evidence of ventricular dilatation. Proton density T2-weighted and FLAIR images reveal no significant intraparenchymal signal abnormaliti es. There are no abnormal flow voids. There is a small left maxillary sinus retention cyst. IMPRESSION: 1. No acute intracranial findings 2. No evidence of acute or subacute infarction 3. No evidence of intracranial mass on this noncontrast study Electronically signed by: Chester Reyes M.D. 10/19/2018 6:35 PM
[2018-10-19] MEDS: SODIUM CHLORIDE 0.9% 1000ML 1,000 ML IV SCH (18:45)
[2018-10-19 19:22] LABS: Appearance Urine Cloudy (Clear); Bacteria Urine Automated Negative (Negative); Bilirubin Urine Negative (Negative); Blood Urine Trace (Negative); Color Urine Yellow; Glucose Urine UA Negative (Negative); Ketones Urine Negative (Negative); Leukocyte Esterase Urine Negative (Negative); Nitrite Urine Negative (Negative); Protein Urine Negative (Negative); Specific Gravity Urine > 1.045 (1.000-1.030); Urobilinogen Urine Negative (Negative); pH Urine 7.5 (4.5-7.5)
[2018-10-19 19:36] LABS: Amphetamines+Metham, Urine Neg (Neg); Barbiturates, Urine Neg (Neg); Benzodiazepine, Urine Neg (Neg); Cocaine, Urine Neg (Neg); MDMA (Ecstacy), Urine Neg (Neg); Methadone, Urine Neg (Neg); Opiate, Urine Neg (Neg); Phencyclidine, Urine Neg (Neg)
[2018-10-19] MEDS ORDERED: KETOROLAC TROMETHAMINE 15 MG/ML VIAL IV ONE (19:40)
[2018-10-19] MEDS ORDERED: NITROGLYCERIN 2% OINTMENT 30GM TUBE EXT ONE (19:40)
[2018-10-19] MEDS ORDERED: CYANOCOBALAMIN 500 MCG TABLET (VITAMIN B-12) PO SCH (21:00)
[2018-10-19] MEDS ORDERED: ASPIRIN 81 MG ECTAB PO SCH (21:00)
[2018-10-19] MEDS ORDERED: CALCIUM CARBONATE 1250MG TAB PO SCH (21:00)
[2018-10-19] MEDS ORDERED: CEROVITE ADV FORMULA TAB PO SCH (21:00)
[2018-10-20 06:58] LABS: Chol HDL Ratio 3; Cholesterol 179 mg/dl (0-200); HDL Cholesterol 70 mg/dl; LDL Cholesterol Calculated 88 mg/dl; Triglycerides 107 mg/dl (0-150); VLDL Cholesterol 21 mg/dl
[2018-10-20] MEDS ORDERED: MAGNESIUM OXIDE 400 MG TAB PO SCH (09:00)
[2018-10-20] MEDS ORDERED: SIMVASTATIN 40 MG TAB PO SCH (09:00)
[2018-10-20] MEDS ORDERED: hydroCHLOROthiazide 25 MG TAB PO SCH (09:00)
[2018-10-20] MEDS ORDERED: LOSARTAN POTASSIUM 50 MG TAB PO SCH (09:00)
[2018-10-20] MEDS: SODIUM CHLORIDE 0.9% 1000ML 1,000 ML IV SCH (10:01)
--- NOTE | 2018-10-20 10:10 | Neurology Consultation ---
Date of Consultation October 20, 2018 Assessment & Plan (1) TIA (transient ischemic attack): TIA presenting with what sounds like an expressive aphasia and an associated mild left hemiparesis. Of course, expressive aphasia and/or speech arrest would typically localize to the left cerebral hemisphere which would not be consistent with the reported left hemiparesis which localizes to the right cerebral hemisphere. Bilateral hemispheric involvement possible but we would then need to consider a more diffuse thromboembolic event such as cardioembolism. However, there is no evidence of stroke or acute ischemic injury on her recently completed MRI. 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 Currently, the patient is neurologically intact and she has a completely unrevealing neuro imaging work-up. She does have some stroke/TIA risk factors including hyperlipidemia and hypertension, although these issues appear to be well controlled. At this point, I would recommend switching from daily low-dose aspirin to Plavix 75 mg/day for the next 3 months. If she remains stable she may change back to daily low-dose aspirin. I would also recommend obtaining a transthoracic echocardiogram with bubble study. No further immediate recommendations. Please contact me if I may be of further assistance. History of Present Illness Reason for Consultation: Strokelike symptoms Requesting Physician: Tasha Arias DO Attending Physician: Elzbieta Chun MD History of Present Illness The patient is a 63-year-old female with a chief complaint of inability to speak and associated weakness of the left arm and leg that began acutely about 15 minutes prior to arrival, but has significantly improved at the time of her initial assessment. 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 She also recalls some associated diaphoresis. She took 1 of her mother's nitroglycerin tablets at symptom onset. Past medical history notable for hypertension, hyperlipidemia, and lumbar spinal stenosis with a history of lumbar fusion. She takes daily low-dose aspirin, simvastatin, losartan, and hydrochlorothiazide. She denies a history of stroke or TIA. Currently, the patient reports that her symptoms are resolved. No lingering difficulty with speech or strength. No headache or vision change. Additional details as below. Allergies Allergy/AdvReac Type Severity Reaction Status Date / Time acetaminophen Allergy Unknown RASH, Unverified 10/19/18 14:50 SEVERE ITCHINESS codeine Allergy Unknown RASH, Unverified 10/19/18 14:50 SEVERE ITCHINESS morphine Allergy Unknown skin Verified 10/19/18 14:50 redness, itching oxycodone Allergy Unknown URITCARIA Verified 10/19/18 14:50 Home Medications Home Medications Medication Instructions Recorded Confirmed Type Multi-Day Plus Minerals 1 tab PO QPM 12/23/17 10/19/18 History aspirin [Aspir-81] 81 mg PO QPM 12/23/17 10/19/18 History calcium carbonate [Calcium 600] 600 mg PO QPM 12/23/17 10/19/18 History losartan 50 mg PO QAM 12/23/17 10/19/18 History magnesium sulfate 100 mg PO QAM 12/23/17 10/19/18 History simvastatin 40 mg PO QAM 12/23/17 10/19/18 History vitamin D12-lqksq acid 1,000 mcg PO QPM 12/23/17 10/19/18 History hydrochlorothiazide 25 mg tablet 25 mg PO QAM #90 tab 10/07/18 10/19/18 Rx Patient History Medical History Fusion of spine LUMBAR History of hysterectomy TOTAL HYSTERECTOMY BSO Hyperlipidemia Hypertension Osteoarthritis Surgical History History of bladder surgery History of carpal tunnel release R/L History of dilatation and curettage X 4 Family History Father Diabetes mellitus, type 2 Myocardial infarction Mother Diabetes mellitus, type 2 Stroke Other History of bilateral tubal ligation Social History Preferred Language: Jamaican Communication Ability: Effective 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 Beliefs That Will Affect Care: None Current Living Situation: Spouse Other Information That Helps Us Care for You: No Feels Safe at Home: Yes Safety Concerns: Feels Safe At This Time Smoking Status: Never smoker Do You Dip or Chew Tobacco: No Second Hand Exposure: No Hx Alcohol Use: No Hx Substance Use: No Review of Systems Constitutional: no fever and no chills Eyes: no blind spots and no diplopia Ear, Nose, Mouth, Throat: no tinnitus and no hearing loss Respiratory: no cough and no dyspnea Cardiovascular: no chest pain and no palpitations Gastrointestinal: no nausea and no vomiting Genitourinary: no dysuria Musculoskeletal: no myalgia Integumentary: no rash and no lesions Neurologic: as per Subjective / HPI Psychiatric: no depression and no anxiety Hematologic / Lymphatic: no easy bleeding and no easy bruising Physical Exam Physical Exam: The patient is a well-developed, well-nourished elderly female. She is alert and fully oriented. Recent and remote memory intact. Attention and concentration normal. Patient exhibits a normal spontaneous speech pattern. She is able to name objects and repeat phrases. Patient exhibits an age- appropriate fund of knowledge and normal comprehension of vocabulary. Visual pereyra full to confrontation. Visual acuity normal. Pupils equal round react to light and accommodation. Eye movements normal. Facial sensation intact. There is no facial droop or weakness. Hearing intact. Palate elevates to midline. Shoulder shrug intact. Tongue protrudes to midline. Sensation intact to all modalities in all 4 limbs. Deep tendon reflexes intact and symmetrical for the arms and legs bilaterally. Plantar responses downgoing bilaterally. There is no dysdiadochokinesia or dysmetria osmamm-vt-dxug or ukbo-gx-jaog bilaterally. Ophthalmoscopic examination reveals normal-appearing optic disks and posterior segments. No papilledema or hemorrhages. Carotid pulses normal bilaterally, no bruits to auscultation. Gait and station normal. Patient exhibits normal muscle strength and tone for all 4 limbs. No atrophy. No abnormal movements observed. Results & Data Vital Signs (Past 12 Hours) Vital Signs Temp Pulse Pulse Resp BP Pulse Ox 10/20/18 08:57 63 10/20/18 07:00 36.6 C 54 L 20 145/78 H 96 10/20/18 03:47 36.4 C L 50 L 16 138/77 98 10/20/18 01:09 59 L 10/19/18 23:20 36.4 C L 55 L 18 115/69 96 Laboratory Results Recently completed labs reviewed. WBC 3.94, hemoglobin 13.4, hematocrit 38.4, platelet count 223, sodium 140, potassium 3.4, BUN 24, creatinine 1.1, glucose 155, calcium 9.3, magnesium 2.4, transaminases normal, lipid panel within normal limits. Diagnostic Findings A CT of the head completed yesterday was negative for acute process. No hemorrhage. There is a mild degree of chronic microvascular ischemic change. Images and report reviewed. CT angiography of the head and neck are unremarkable. No stenosis, occlusion, dissection, or aneurysm. MRI of the brain completed yesterday was negative for acute findings. No significant parenchymal disease identified. Images and report reviewed. An electrocardiogram completed yesterday reveals sinus bradycardia, 58 bpm.
[2018-10-20] MEDS ORDERED: CLOPIDOGREL BISULFATE 75 MG TAB PO SCH (11:15)
--- NOTE | 2018-10-20 14:58 | Discharge Summary ---
Date of Service October 20, 2018 Admission HPI Per Admitting Provider 63 y/o F c/o chest pain and stroke like sx. 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 It did not radiate. She was sweaty with this, but no other sx. She sat down but it did not improve. Her mother has hx of chest pain and has nitro in the home, so she took one. After about 10 minutes, her pain was improved but still present, so she decided she should come to the ED. On the way to the ED, pt was trying to speak, but she could not express what she was trying to say. She was not confused and was aware that this was happening. By the time she came to the ED, this was resolved but pt was noted to still be having some slower speech than usual. When she tried to move from the car to the wheelchair, she noted that her L side was weaker. This had not been the case with the initial sx. ED evaluation noted a L sided pronator drift and decreased L sided strength initially. Pt was evaluated by telemed, but by this time her sx were noted to have been resolved. Pt states that she has never had any of these sx in the past. She states that she feels tired at present, but otherwise herself. 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 Pt takes 81mg aspirin QHS for prevention and has not missed any doses. Pt denies fever, SOB, chest pain, abd pain, n/v/c/d, LE pain or swelling. Admission Exam Per Admitting Provider Constitutional: WD/WN, vitals as above Eyes: normal visual pereyra by confrontation and + anicteric sclerae Neck: normal visual inspection and trachea midline Respiratory: normal respiratory effort, lungs clear to auscultation Cardiovascular: Rate/Rhythm: regular rate and regular rhythm Gastrointestinal (Abdomen): Inspection/Auscultation: abdomen not distended Percussion/Palpation: abdomen soft; abdomen nontender Musculoskeletal: Head/Neck/Chest: normocephalic and head atraumatic negative for edema, peripheral pulses intact Skin: no rashes, warm and dry Neurologic: CN's II-XI intact bilaterally and awake; not confused Speech / Cognition: normal speech = 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 NAD. Cooperative. HEENT: Atraumatic, normocephalic. Pupils equally reactive to light and accommodation. Extraocular movements intact. Visual acuity intact. No visual field cuts. No facial asymmetry. No nasolabial flattening. Shoulder shrug intact. Pulm: CTAB A&P. -wheezes, -rales, -rhonchi. Symmetrical chest rise. No increase work of breathing. No respiratory distress. Cardiac: RRR, -mrg. Radial pulses intact and symmetrical. Abdominal: Nontender, nondistended, soft. BS present. Extremity: Wrist flexion/extension, finger flexion/extension/interosseal/aircraft maintenance manager, elbow flexion/extension, shoulder flexion/extension/internal rotation/external rotation/abduction/abduction, hip flexion, knee flexion/extension, ankle plantar flexion/dorsiflexion all intact with 5/5 strength bilaterally. Patellar and biceps DTR 2+ bilaterally. No ankle clonus bilaterally. Discharge Data Allergies Allergy/AdvReac Type Severity Reaction Status Date / Time acetaminophen Allergy Unknown RASH, Unverified 10/19/18 14:50 SEVERE ITCHINESS codeine Allergy Unknown RASH, Unverified 10/19/18 14:50 SEVERE ITCHINESS morphine Allergy Unknown skin Verified 10/19/18 14:50 redness, itching oxycodone Allergy Unknown URITCARIA Verified 10/19/18 14:50 Consultations 10/19/18 15:01 ED Decision to Admit Stat 10/19/18 16:31 Consult Case Management - Discharge Planning Routine Consult Neurology Routine Ordered Studies 10/19/18 14:04 CT angio head w con Stat CT angio neck with con Stat 10/19/18 14:05 CT head/brain wo con Stat 10/19/18 16:31 MR brain wo con Routine Hospital Course (1) TIA (transient ischemic attack): Mariana is a 63-year-old female with a past medical history of hypertension, hyperlipidemia, L4/L5 stenosis with surgical intervention 8 years ago who presented with an acute episode of chest pain, left weakness, and dysarthria consistent with a TIA. Transient ischemic attack Mariana presented with chest pain, left-sided weakness, and dysarthria of sudden onset as noted above. On admission her CThead was negative, MRI was negative, and CTA of the head and neck did not show any significant stenosis. She had no signs of upper or lower extremity DVT on exam. Her EKG showed sinus bradycardia and troponins X3 were negative. Her lipid panel was not grossly elevated. She experienced rapid resolution of her symptoms with no residual deficit by the next day. Neurology was consulted, and felt that her episode was consistent with a TIA and expressive aphasia although this was unusual given that speech arrest with typically localized to the left cerebral hemisphere. Agree that there is no evidence of stroke or skew ischemic injury on imaging. It was recommended that she switch from low-dose aspirin to Plavix 75 mg daily for the next 3 months and then may convert back to aspirin if stable and clinically well at that time. Transthoracic echocardiogram with bubble study was ordered, to be completed as outpatient on follow-up with her PCP. Her simvastatin 40 mg was converted to atorvastatin 40 mg. Hypertension Mariana has a history of hypertension managed with hydrochlorothiazide 25 mg and losartan 50 mg. Her antihypertensives were continued during admission and she had good blood pressure control. She was normotensive at approximately 111/68 at time of discharge. L4/L5 stenosis status post fusion Mariana reports that she has L5/L4 stenosis with surgery 8 years ago, but has done well since surgery. She reports that she has to stretch in the morning where she gets stiff easily but does not have problems with weakness or chronic pain as a result of her stenosis. 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 Given that her presenting symptoms also included arm and speech involvement, her stenosis was not thought to be involved with her acute presentation and no changes were made. (2) HTN (hypertension): Total Time Total Time Spent Total Time Spent (In Minutes): 30 Discharge Plan Discharge Items Patient Disposition: Home - Self-Care Reason For Visit: STROKE LIKE SYMPTOMS Discharge Diagnosis: Transient ischemic attack Discharge Goals: Prevent disease Activity: Resume your previous activity Non-emergency contact: Primary Care Provider and Neurologist Call non-emergency contact if: you have any medication questions and your symptoms worsen Follow-up/Referrals: Miguel Rust MD [Primary Care Provider] - Diet: Heart Healthy Addtl Provider Instructions: You are seen in the hospital for left-sided weakness and speech difficulty concerning for a stroke. Your MRI and CT scan did not show signs of a stroke. Imaging of your neck did not show signs of blood vessel disease likely to cause a stroke. Your symptoms are most likely caused by a transient ischemic attack, a small stroke like episode that does not cause permanent damage. Please stop taking aspirin daily. This is been replaced with Plavix. You have been started on an antiplatelet medication, Plavix. This replaces your prior aspirin. Please take Plavix 75 mg daily for the next 3 months. If you continue to be asymptomatic your doctor may advise you to switch back to aspirin after these 3 months or complete. Your cholesterol medication has been changed. Please stop taking simvastatin, this is been replaced with atorvastatin. You have been started on a cholesterol medication, atorvastatin. Please take atorvastatin 40 mg daily. If you develop any muscle aches, body aches, rash, or new symptoms please contact your primary care physician. A follow-up appointment with your primary care provider Dr. Miguel Rust is being made for you. You should receive a call to confirm your appointment. If you do not receive a call, or need to change her appointment please call his office at [phone]. Your primary care provider can arrange an ECHO (ultrasound of your heart for you), as you did not have this in the hospital. If you develop any new, recurrent, or worsening symptoms including headache, dizziness, lightheadedness, feeling like you are going to pass out, chest pain, chest pressure, shortness of breath, difficulty breathing, weakness, difficulty speaking, sudden vision change, or confusion please call your care provider's office at [phone], or call 911 for transportation to the emergency department for evaluation if you are very concerned. Prescriptions: New clopidogrel 75 mg Tablet 75 mg PO QAM Qty: 30 RF: 3 atorvastatin 40 mg tablet 40 mg PO HS Qty: 30 RF: 3 Continued hydrochlorothiazide 25 mg tablet 25 mg PO QAM Qty: 90 RF: 3 calcium carbonate [Calcium 600] 600 mg calcium (1,500 mg) Tablet 600 mg PO QPM RF: 0 Multi-Day Plus Minerals 18 mg iron-400 mcg-25 mcg Tablet 1 tab PO QPM RF: 0 losartan 50 mg Tablet 50 mg PO QAM RF: 0 vitamin R56-dtrbl acid 500-400 mcg Tablet 1,000 mcg PO QPM RF: 0 magnesium sulfate 100 mg Capsule 100 mg PO QAM RF: 0 Discontinued aspirin [Aspir-81] 81 mg Tablet,Delayed Release (Dr/Ec) 81 mg PO QPM RF: 0 simvastatin 40 mg Tablet 40 mg PO QAM RF: 0 Stand-Alone Forms: Call Back Authorization, [facility] Discharge Orders: Discharge Order (Routine); Ordered 10/20/18 Ordered By: Roxane Forde Admission Data Admit Date/Time: 10/19/18 15:37 Attending Provider: Elzbieta Chun Admit Provider: Tasha Arias Primary Care Provider: Miguel Rust Other Providers: Tasha Arias ; Valente Reyna Service: Telemetry Medical Other Interventions: Discharge Summary Assessment (RN) Last Done: 10/20/18 17:20 DC Date/Time DO NOT enter until pt leaves facility: 10/20/18 17:59 Supervising Physician Co-Signing Physician Notes Resident Physician Supervision Note: I independently interviewed and examined the patient and verified the woods history and physical, reviewed labs and image studies, discussed the case with the resident Dr. Mullins and agree with the findings and care plan. Time spent in discharge 35 min Resident Activity Tracking Resident Involvement: Resident Care Provided Care Provided: Adult Hospital Medicine
[2018-10-20] MEDS ORDERED: STROKE PATIENT DISCHARGE STA (17:04)
--- NOTE | 2018-10-20 21:26 | Pharmacy Report ---
Pharmacist Stroke Counseling - Date of Service October 20, 2018 - Scope: Pharmacy has been consulted to provide medication discharge counseling for this patient admitted with [ischemic stroke] [hemorrhagic stroke] [transient ischemic attack] as per the Pharmacist Discharge Counseling for Stroke Patients Protocol . - Medications on Discharge: Home Medications Medication Instructions Recorded Confirmed Multi-Day Plus Minerals 1 tab PO QPM 12/23/17 10/19/18 calcium carbonate [Calcium 600] 600 mg PO QPM 12/23/17 10/19/18 losartan 50 mg PO QAM 12/23/17 10/19/18 magnesium sulfate 100 mg PO QAM 12/23/17 10/19/18 vitamin V02-tjmzv acid 1,000 mcg PO QPM 12/23/17 10/19/18 New Rx's Medication Instructions Recorded hydrochlorothiazide 25 mg tablet 25 mg PO QAM #90 tab 10/07/18 atorvastatin 40 mg PO HS #30 tab 10/20/18 clopidogrel 75 mg PO QAM #30 tab 10/20/18 - Action: The above medications, specifically ones for stroke treatment/prophylaxis, have been reviewed in detail with the patient and/or patient customer solutions representative(s) prior to discharge. This includes indication, common adverse reactions, drug interactions, and medication administration. Medication counseling has been employed using the teach-back method to ensure understanding. - Outcome: The patient and/or patient customer solutions representative(s) have demonstrated understanding of the medications. Please note, they are aware that the pharmacist will call them within 72 hours post-discharge to confirm that the appropriate medications are being taken and answer any further medication related questions the patient might have at that time. Contact information Individual to be contacted: patient Relationship to patient (if applicable): n/a Phone number: [phone] (home) [phone] (cell) Best time to call: anytime - leave message if can't get a hold of patient Additional comments: Patient admitted with TIA symptoms, starting plavix and atorvastatin. Made sure to let her know that the atorvastatin is replacing her simvastatin and to remove her simvastatin from her medication bottles. Also talked about plavix and to monitor for s/s of bruising and bleeding. She is aware that this replaces her aspirin. Patient aware we are to call her with follow up phone call once she is discharged. Thank you for allowing pharmacy to be involved in the care of this patient. Please call [phone] or [phone] with any additional questions
[2018-10-21 07:44] LABS: Estimated Average Glucose 128 mg/dl; Hemoglobin A1C 6.1 % (4.5-5.6)
--- NOTE | 2018-10-21 10:42 | Pharmacy Report ---
Pharmacist Post D/C Phone Note - Phone Note: Date of phone call: October 21, 2018. Individual with whom pharmacist spoke to: ABDON HERNANDEZ The following questions were reviewed during the phone call with responses listed below each: Can you tell me the medications that you are currently taking as well as when and how you take each medication? -See Table Below (confirmed that ASA and Zocor have been stopped) When have you missed any doses of your medications? - None What side effects are you having from your medications, specifically, the new medications you were started on? - None; no bruising/bleeding, no new muscle aches What questions do you have about your medications? - None What problems are you having obtaining your medications? - None When is your next appointment with your primary care doctor? - 10/27 @ 0700 with Ananya As per the Pharmacist Discharge Counseling for Stroke Patients Protocol, this ph one call has been completed within 72 hours of discharge. Thank you for allowing us to be involved in the care of this patient. - Home Medications: Home Medications Medication Instructions Recorded Confirmed Multi-Day Plus Minerals 1 tab PO QPM 12/23/17 10/19/18 calcium carbonate [Calcium 600] 600 mg PO QPM 12/23/17 10/19/18 losartan 50 mg PO QAM 12/23/17 10/19/18 magnesium sulfate 100 mg PO QAM 12/23/17 10/19/18 vitamin D83-hvryt acid 1,000 mcg PO QPM 12/23/17 10/19/18 New Rx's Medication Instructions Recorded hydrochlorothiazide 25 mg tablet 25 mg PO QAM #90 tab 10/07/18 atorvastatin 40 mg PO HS #30 tab 10/20/18 clopidogrel 75 mg PO QAM #30 tab 10/20/18
--- NOTE | 2018-11-06 10:05 | Emergency Department Note ---
ED Visit Note I have personally spent greater than 38 minutes of critical care time in the direct management of this patient. This includes bedside care, interpretation of diagnostic studies, and testing, discussion with consultants, patient, and family members, and other required patient management activities. This 38 minutes is in excess of all separately billable procedures. .
== END 2018-10-20 17:59 | disposition home or self-care (01) ==
LOC: 2W 13:47 → ED 13:47 → SUATTDRO 15:37 → 2W 16:11